=== PATIENT | male | born 1995 | race Caucasian/White ===

== ENCOUNTER → 2019-10-05 08:36 | Outpatient (CLI) | payer OTHER, SELFPAY ==
--- NOTE | 2019-10-05 | DI.RAD.S_ITS ---
PROCEDURE: XR THORACIC SPINE 3V INDICATIONS: BACK PAIN TECHNIQUE: 3 views of the thoracic spine were acquired. COMPARISON: None. FINDINGS: Bones: No fractures or dislocations. No suspicious bony lesions. 12 pairs of ribs are noted, and appear intact where visualized. Soft tissues: No paravertebral stripe thickening. IMPRESSION: No radiographic abnormalities. Dictated by: Massiel Markham M.D. on 10/05/2019 at 8:36 Approved by: Massiel Markham M.D. on 10/05/2019 at 8:37
--- NOTE | 2019-10-05 | DI.RAD.S_ITS ---
PROCEDURE: XR LUMBAR SPINE 2-3V INDICATIONS: BACK PAIN TECHNIQUE: 3 views of the lumbar spine were acquired. COMPARISON: None. FINDINGS: Bones: 5 [id number] vertebrae are present. There is normal bony alignment. No vertebral body compression fractures. No suspicious bony lesions. Soft tissues: Overlying bowel gas pattern is normal. No suspicious soft tissue calcifications. IMPRESSION: No radiographic abnormalities. Dictated by: Massiel Markham M.D. on 10/05/2019 at 8:39 Approved by: Massiel Markham M.D. on 10/05/2019 at 8:39
== END ==
PROVIDERS: PCP Family Medicine; Referring Provider Chiropractor; Visit Provider Family Medicine
DX: M54.9 Dorsalgia, unspecified (principal); M41.9 Scoliosis, unspecified
CPT/HCPCS: 72072; 72100

== ENCOUNTER 2022-02-03 16:35 | Emergency (ER) | payer OTHER, SELFPAY ==
[2022-02-03 16:40] VITALS: BP 141/90; PULSE 79; RESP 18; TEMP 37.1; O2SAT 100; BMI 19.9
--- NOTE | 2022-02-03 16:54 | ED_ITS ---
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 He notes that symptoms started on FridayJanuary 18. At that time he had noted some very mild low back pain he saw his chiropractor for an adjustment he also noted some left hip pain worsened he was laying on the left side. The chiropractor did an adjustment that included pulling on the left leg. Initially it did seem to help with the pain however within 24 hours he was having significant increased pain. He now is complaining of his entire left foot being numb significant pain in the left thigh/hamstring/calf that does seem to be migratory and positional. Over the last 3 days he is noticing decreasing sensation, increasing weakness and at this point is having trouble bearing weight on the left leg due to weakness. He has also noticed complete decreased sensation to the left foot. No recent fevers, specific trauma, no history of IV drug use. No urinary abnormalities or changes specifically no hesitancy, dysuria or incontinence. Describes no fecal incontinence Related Data Previous Rx's Medication Instructions Recorded epinephrine 0.3 mg/0.3 mL 0.3 mg (0.3 mL) IM ONCE #2 ea 02/23/21 injection, auto-injector (EpiPen 2-Eric) prednisone 20 mg tablet 40 mg PO DAILY PRN #10 tab 02/23/21 dexamethasone 4 mg tablet 10 mg PO DAILY #5 tab 02/03/22 (Decadron) oxycodone-acetaminophen 5 mg-325 1 tab PO Q6H PRN #14 tab 02/03/22 mg tablet Allergies Allergy/AdvReac Type Severity Reaction Status Date / Time bee venom protein (honey bee) Allergy Severe Anaphylaxis Verified 02/03/22 16:58 penicillin V [PENICILLIN V] AdvReac Intermediate VOMITS Verified 02/03/22 16:58 WITHOUT ANTINAUSEA MED Review of Systems Review of Systems Narrative: Remainder of complete review of systems is otherwise unremarkable except for that included in the HPI. 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 Family History (Updated 05/02/15 @ 00:00 by Conversion Provider) Father Age: 61 Hypertension Grandfather Age: 86 Diabetes mellitus Grandfather Cancer Grandmother Mental health problem Social History Smoking Status: Current some day smoker (Occasionaly cigar ) Smoking Status: Current some day smoker (Occasionaly cigar ) Exam Initial Vital Signs Initial Vital Signs: Vital Signs Temperature 98.7 F 02/03/22 16:40 Pulse Rate 79 02/03/22 16:40 Respiratory Rate 18 02/03/22 16:40 Blood Pressure 141/90 H 02/03/22 16:40 Pulse Oximetry 100 02/03/22 16:40 General: Healthy appearing, moderate distress having difficulty finding a comfortable position in bed. Intermittently sitting up and standing. Able to give a complete and coherent history. Well-nourished well-developed HEENT: Moist mucous membranes, normal sclera with reactive pupils, Respiratory: Lungs are clear to auscultation, no wheezing no rales no rhonchi. Full and symmetrical air movement Cardiac: Regular rate and rhythm no murmurs no bruits Abdomen: Soft, nontender, good bowel tones, no flank pain Skin: Warm and dry, no rashes Spine: No redness or warmth to the thoracic or lumbar spine. There is no point tenderness centrally. He does have some tenderness left paraspinous and into the left buttock with deep palpation. Neurologic: Full sensation to perineum. Decreased sensation in the posterior left leg lateral thigh lateral calf and dorsum of the foot and left lateral portion of the foot. Palpable dorsalis pedis and posterior tibialis pulses present. Pain with straight leg raising. Weakness unrelated to pain with walking or standing on the left leg with a sensation of leg is going to give out. Extremities: No trauma, well perfused Psych: Cooperative, appropriate insight and affect Course Orders Ordered: Discontinued Medications Dexamethasone (Dexamethasone 10 Mg/Ml Vial) 10 mg PO NOW ONE Stop: 02/03/22 18:36 Ketorolac Tromethamine (Ketorolac 30 Mg/Ml Vial) 30 mg IM NOW ONE Stop: 02/03/22 18:05 Last Admin: 02/03/22 18:12 Dose: 30 mg Documented by: INES Oxycodone/Acetaminophen (Oxycodone/Acetaminophen 5/325 Tablet) 1 tab PO NOW ONE Stop: 02/03/22 18:05 Last Admin: 02/03/22 18:12 Dose: 1 tab Documented by: INES Oxycodone/Acetaminophen (Oxycodone/Apap 5/325 Prepack) 1 bottle MISC SEEINSTR ONE Stop: 02/03/22 18:05 Last Admin: 02/03/22 18:12 Dose: 1 bottle Documented by: INES Vital Signs Vital signs: Vital Signs - 8 hr 02/03/22 16:40 02/03/22 18:08 Temperature 98.7 F Pulse Rate 79 74 Respiratory Rate 18 16 Blood Pressure 141/90 H 149/73 H Pulse Oximetry 100 97 Medical Decision Making MDM Narrative Medical decision making narrative: Otherwise healthy 26-year-old gentleman with history of some mild low back pain than chiropractic manipulation in our the last 2 weeks with progressive radicular findings and the last couple of days with increasing weakness and significant paresthesias on the left side. He does not have any red flags for epidural abscess however with the progressive weakness and paresthesia he does need an MRI. His paresthesia distribution is in an L5-S1 left side. He is given a take-home pack of Percocet to use this evening along with a Toradol shot here in the emergency department. Will start him on 3 days of Decadron with 1st dose given in the emergency department and prescription for additional 2 days. At this point with the progressive neurologic findings and need for MRI offered allowing him to stay in the emergency department for the evening knowing that there are no MRI options available at all until early tomorrow morning. He opted to stay with some friends and Anucort is some will be back it 6:00 a.m. in the morning with anticipation of MRI to follow. Care is reviewed with Dr. Mendes who will be here at 6:00 a.m. in the morning. Discharge Plan Departure Patient Disposition: Home Clinical Impression: Low back pain radiating to left leg, Left leg weakness, Paresthesia of left leg Instructions: DI for Back Pain With Sciatica Activity Restrictions/Additional Instructions: Thank you for coming in today With the pain that you are experiencing, using 400 mg of ibuprofen (2 [id number] pills) and 1 Tylenol every 6 hours can be very helpful. With severe pain using to ibuprofen and 1 Percocet may be needed. If you choose to use the Percocet make sure that your adding stool softener. In addition to your pain I am concerned with the weakness as well as the numbness that has been progressive over the last 3-4 days. With the progressive neurologic changes in the setting I have recommended an MRI of your lumbar spine. Unfortunately, options for MRI are not going to be available until at least 7:00 a.m. tomorrow morning. I will be discharging you from the emergency room this evening but would suggest that you return in the morning with anticipation of MRI to be ordered. I have reviewed your case with Dr. Mendes who is expected to be here in the morning. Prescriptions: New oxycodone-acetaminophen 5-325 mg tablet 1 tab PO Q6H PRN (Reason: pain) Qty: 14 0RF dexamethasone [Decadron] 4 mg tablet 10 mg PO DAILY Qty: 5 0RF No Action epinephrine [EpiPen 2-Eric] 0.3 mg/0.3 mL auto-injector 0.3 mg IM ONCE Qty: 2 2RF Rx Instructions: as a single dose; may repeat once prednisone 20 mg tablet 40 mg PO DAILY PRN (Reason: allergic reaction) Qty: 10 1RF Rx Instructions: Take 2 at the onset of an allergic reaction
[2022-02-03 18:08] VITALS: BP 149/73; PULSE 74; RESP 16; O2SAT 97
[2022-02-03] MEDS: KETOROLAC 30 MG/ML VIAL IM (18:12)
[2022-02-03] MEDS: OXYCODONE/ACETAMINOPHEN 5/325 TABLET 1 TAB PO (18:12)
[2022-02-03] MEDS: OXYCODONE/APAP 5/325 PREPACK 1 BOTTLE MISC (18:12)
[2022-02-03] MEDS: DEXAMETHASONE 10 MG/ML VIAL PO (18:47)
== END 2022-02-03 18:52 | disposition home or self-care (01) ==
PROVIDERS: Emergency Provider Emergency Medicine
DX: M54.42 Lumbago with sciatica, left side (principal); R20.2 Paresthesia of skin; R53.1 Weakness
CPT/HCPCS: 96372; 99283; J1100; J1885

== ENCOUNTER 2022-02-04 06:02 | Observation (INO) | payer OTHER, SELFPAY ==
[2022-02-04] VITALS (20 sets, daily range): BP systolic 89–143; BP diastolic 47–77; PULSE 66–115; RESP 8–20; TEMP 35.9–38.1; O2SAT 96–100; BMI 20.2
--- NOTE | 2022-02-04 | DI.RAD.S_ITS ---
PROCEDURE: XR LUMBAR SPINE 2-3V INDICATIONS: L5-S1 MICRO DISCECTOMY TECHNIQUE: Two nondiagnostic intraoperative fluoroscopic views of the lumbar spine were acquired. COMPARISON: [facility], [place], XR LUMBAR SPINE 2-3V, 10/05/2019, 8:48. FINDINGS/IMPRESSION: Two non-diagnostic intraoperative fluoroscopic views of the lower lumbar spine for L5-S1 micro endoscopic discectomy. Dictated by: Guy Kline M.D. on 02/05/2022 at 10:31 Approved by: Guy Kline M.D. on 02/05/2022 at 10:36
--- NOTE | 2022-02-04 06:15 | DI.MRI.S_ITS ---
PROCEDURE: MR LUMBAR SPINE WO/W CON INDICATIONS: LLE weak numb and tachycardic eval for HNP/Discitis/DDD TECHNIQUE: Noncontrast sagittal T1 spin echo and T2 fast spin echo, sagittal STIR, axial T1 and T2 fast spin echo through the lumbar spine. In cases with scoliosis, additional coronal T2 fast spin echo may be performed. After the administration of contrast, sagittal and axial T1 spin echo with fat saturation through the lumbar spine. COMPARISON: None. FINDINGS: Image quality: Excellent. Alignment and curvature: There is normal bony alignment. Marrow: Marrow is of normal overall signal. No acute vertebral body compression fractures. No suspicious marrow enhancement. Spinal cord: Conus medullaris terminates at the L1 level. Visualized spinal cord demonstrates normal signal, without suspicious enhancement. Paraspinous soft tissues: No paravertebral masses or abnormal enhancement. T12-L1: Normal appearance. L1-L2: Normal appearance. L2-L3: Normal appearance. L3-L4: Normal appearance. L4-L5: Mild loss of disc height and moderate disc desiccation. There is diffuse posterior disc bulge and posterior central annular fissure. The central canal is minimally narrowed. Mild bilateral foraminal stenosis. No definitive nerve root impingement. L5-S1: Mild loss of disc height moderate disc desiccation. There is diffuse posterior disc bulge and left posterior and lateral disc protrusion. The protruding disc measures 14 mm AP x 24 mm transverse x 16 mm cephalocaudal, obliterating the left lateral recess and extending into the neural foramen. There is left L5 nerve root impingement, and possible left S1 nerve root impingement. There is mass effect to the left anterior lateral aspect of the thecal sac. The central canal is mildly narrowed. There is severe left foraminal stenosis and mild right foraminal stenosis. IMPRESSION: 1. There is left posterior and lateral disc protrusion at L5-S1 with large protruding disc measuring 14 x 24 x 16 mm, obliterating the left lateral recess, impinging the left L5 nerve root, and possible the left S1 nerve root. There is severe left and mild right L5-S1 foraminal stenoses. 2. Degenerative disc disease at L4-L5 with posterior disc bulge and posterior central annular fissure posterior centrally. Minimal central canal stenosis. No foraminal stenosis. The result was discussed with Dr. Purcell. Dictated by: Birgit Cat M.D. on 02/04/2022 at 8:08 Approved by: Birgit Cat M.D. on 02/04/2022 at 8:28
--- NOTE | 2022-02-04 06:19 | ED.BACK ---
HPI - Back Pain/Injury <Duke Mendes DO - Last Filed: 02/06/22 07:01> General Chief Complaint: Back Pain/Injury Stated Complaint: recheck from prior visit told by doctor to come Time Seen by Provider: 02/04/22 06:04 Source: patient Mode of arrival: Ambulatory Limitations: no limitations History of Present Illness HPI Narrative: Patient is a 26-year-old male who returns to the emergency department this morning for an MRI. He was seen in the emergency department last evening. He recently had a chiropractic adjustment and since then has been having progressively worsening pain and numbness in his left lower extremity. Patient states that since last evening he does think that the numbness has progressed up his leg. He is still having discomfort. He denies any fevers or GI symptoms or urinary symptoms. Related Data Home Medications Medication Instructions Recorded Confirmed Tylenol 1,000 mg PO Q6H PRN 02/04/22 02/04/22 ibuprofen 400 mg tablet 400 mg Q6H PRN 02/04/22 02/04/22 Previous Rx's Medication Instructions Recorded epinephrine 0.3 mg/0.3 mL 0.3 mg (0.3 mL) IM ONCE #2 ea 02/23/21 injection, auto-injector (EpiPen 2-Eric) prednisone 20 mg tablet 40 mg PO DAILY PRN #10 tab 02/23/21 dexamethasone 4 mg tablet 10 mg PO DAILY #5 tab 02/03/22 (Decadron) oxycodone-acetaminophen 5 mg-325 1 tab PO Q6H PRN #14 tab 02/03/22 mg tablet oxycodone 5 mg tablet 5 mg PO Q4H PRN #30 tab 02/04/22 Allergies Allergy/AdvReac Type Severity Reaction Status Date / Time bee venom protein (honey bee) Allergy Severe Anaphylaxis Verified 02/04/22 06:09 penicillin V [PENICILLIN V] AdvReac Intermediate VOMITS Verified 02/04/22 06:09 WITHOUT ANTINAUSEA MED Review of Systems <Duke Mendes DO - Last Filed: 02/06/22 07:01> Constitutional Constitutional: Denies fever(s) Gastrointestinal Gastrointestinal: Reports as per HPI and Reports system reviewed and no additional complaints, except as documented Genitourinary Genitourinary: Reports system reviewed and no additional complaints, except as documented and Reports as per HPI Musculoskeletal Musculoskeletal: Reports system reviewed and no additional complaints, except as documented and Reports as per HPI Integumentary/Breasts Skin/Breast: Reports system reviewed and no additional complaints, except as documented and Reports as per HPI Neurologic Neurologic: Reports system reviewed and no additional complaints, except as documented and Reports as per HPI Hematologic/Lymphatic On Anticoagulants: No Patient History <DO Adrienne Shaffer Last Filed: 02/06/22 07:01> Medical History Bee sting allergy Cognitive and neurobehavioral dysfunction Family History (Updated 05/02/15 @ 00:00 by Conversion Provider) Father Age: 61 Hypertension Grandfather Age: 86 Diabetes mellitus Grandfather Cancer Grandmother Mental health problem Social History household members: significant other Smoking Status: Current some day smoker alcohol intake: current Smoking Status: Current some day smoker tobacco type: cigars alcohol intake frequency: a few times a week Substance Use Type: does not use Exam <DO Adrienne Shaffer Last Filed: 02/06/22 07:01> Initial Vital Signs Initial Vital Signs: Vital Signs Temperature 97.8 F 02/04/22 06:09 Pulse Rate 115 H 02/04/22 06:09 Respiratory Rate 20 02/04/22 06:09 Blood Pressure 143/75 H 02/04/22 06:09 Pulse Oximetry 97 02/04/22 06:09 HENMT Head: normal to inspection and normocephalic Resp Effort & Inspection: normal respiratory effort Cardio Rate: tachycardic Neuro Other: Patient is able to stand and walk. Describes decreased sensation to the lateral aspect of the leg along the lateral aspect of the left foot. Extrem General: normal to inspection Psych Appearance: grossly normal and well kempt <DO Adrienne Staples Last Filed: 02/04/22 18:44> Initial Vital Signs Initial Vital Signs: Vital Signs Temperature 97.8 F 02/04/22 06:09 Pulse Rate 115 H 02/04/22 06:09 Respiratory Rate 20 02/04/22 06:09 Blood Pressure 143/75 H 02/04/22 06:09 Pulse Oximetry 97 02/04/22 06:09 Course <DO Adrienne Shaffer Last Filed: 02/06/22 07:01> Orders Ordered: Discontinued Medications Hydrocodone Bitart/Acetaminophen (Hydrocodone/Acet 5/325 Tablet) 1 tab PO PACUNOW PRN PRN Reason: Mild or moderate pain Last Admin: 02/04/22 18:19 Dose: 1 tab Documented by: YON Cefazolin Sodium/Dextrose (Cefazolin 2 Gm/20 Ml Syringe) 2 gm IV NOW ONE Stop: 02/04/22 16:47 Last Admin: 02/04/22 16:25 Dose: 2 gm Documented by: NILAY Bupivacaine HCl 30 ml/ (Epinephrine HCl 0.15 mg) 0 ml INJ NOW ONE Stop: 02/04/22 16:49 Last Admin: 02/04/22 16:48 Dose: 30 ml Documented by: MAIDA Fentanyl (Fentanyl 100 Mcg/2 Ml Inj) 0 mcg IV Q5M PRN PRN Reason: Pain, Moderate (4-6) Hydromorphone HCl (Hydromorphone 1 Mg Inj) 1 mg IV NOW ONE Stop: 02/04/22 11:36 Last Admin: 02/04/22 11:39 Dose: 1 mg Documented by: LATHA Hydromorphone HCl (Hydromorphone 0.5 Mg Inj) 0.5 mg IV Q2H PRN PRN Reason: Pain, Severe (7-10) Hydromorphone HCl (Hydromorphone 1 Mg Inj) 0.5 mg IV Q2H PRN PRN Reason: Pain, Severe (7-10) Hydromorphone HCl (Hydromorphone 2 Mg Inj) 0.5 mg IV Q2H PRN PRN Reason: Pain, Severe (7-10) Last Admin: 02/04/22 14:41 Dose: 0.5 mg Documented by: Admin: 02/04/22 13:02 Dose: 0.5 mg Documented by: NIKUNJ Hydromorphone HCl (Hydromorphone 2 Mg Inj) 0 mg IV Q5M PRN PRN Reason: Pain, Severe (7-10) Hydroxyzine HCl (Hydroxyzine 50 Mg/Ml Inj) 25 mg IM NOW PRN PRN Reason: Pain, Mild (1-3) Sodium Chloride (Normal Saline 0.9%) 1,000 mls @ 125 mls/hr IV CONT BELA Lactated Ringer's (Lactated Ringers) 1,000 mls @ 84 mls/hr IV NOW ONE Stop: 02/05/22 00:31 Last Infusion: 02/04/22 18:14 Dose: 0 mls/hr Documented by: Admin: 02/04/22 12:37 Dose: 84 mls/hr Documented by: IVAN Lorazepam (Lorazepam 2 Mg/Ml Inj) 0.25 mg IV NOW PRN PRN Reason: Anxiety Meperidine HCl (Meperidine 50 Mg/Ml Inj) 25 mg IV Q2H PRN PRN Reason: Pain, Severe (7-10) Methylprednisolone (Methylprednisolone 40 Mg/Ml Vial) 40 mg IV NOW ONE Stop: 02/04/22 16:50 Last Admin: 02/04/22 16:49 Dose: 40 mg Documented by: MAIDA Metoclopramide HCl (Metoclopramide 10 Mg/2 Ml Inj) 10 mg IV NOW PRN PRN Reason: Nausea And Vomiting Ondansetron HCl (Ondansetron 4 Mg/2 Ml Inj) 4 mg IV Q4HR PRN PRN Reason: Nausea And Vomiting Ondansetron HCl (Ondansetron 4 Mg/2 Ml Inj) 4 mg IV NOW PRN PRN Reason: Nausea And Vomiting Vital Signs Vital signs: Vital Signs - 8 hr 02/04/22 06:09 Temperature 97.8 F Pulse Rate 115 H Respiratory Rate 20 Blood Pressure 143/75 H Pulse Oximetry 97 <González Purcell DO - Last Filed: 02/04/22 18:44> Orders Ordered: Discontinued Medications Hydrocodone Bitart/Acetaminophen (Hydrocodone/Acet 5/325 Tablet) 1 tab PO PACUNOW PRN PRN Reason: Mild or moderate pain Last Admin: 02/04/22 18:19 Dose: 1 tab Documented by: YON Cefazolin Sodium/Dextrose (Cefazolin 2 Gm/20 Ml Syringe) 2 gm IV NOW ONE Stop: 02/04/22 16:47 Last Admin: 02/04/22 16:25 Dose: 2 gm Documented by: NILAY Bupivacaine HCl 30 ml/ (Epinephrine HCl 0.15 mg) 0 ml INJ NOW ONE Stop: 02/04/22 16:49 Last Admin: 02/04/22 16:48 Dose: 30 ml Documented by: MAIDA Fentanyl (Fentanyl 100 Mcg/2 Ml Inj) 0 mcg IV Q5M PRN PRN Reason: Pain, Moderate (4-6) Hydromorphone HCl (Hydromorphone 1 Mg Inj) 1 mg IV NOW ONE Stop: 02/04/22 11:36 Last Admin: 02/04/22 11:39 Dose: 1 mg Documented by: LATHA Hydromorphone HCl (Hydromorphone 0.5 Mg Inj) 0.5 mg IV Q2H PRN PRN Reason: Pain, Severe (7-10) Hydromorphone HCl (Hydromorphone 1 Mg Inj) 0.5 mg IV Q2H PRN PRN Reason: Pain, Severe (7-10) Hydromorphone HCl (Hydromorphone 2 Mg Inj) 0.5 mg IV Q2H PRN PRN Reason: Pain, Severe (7-10) Last Admin: 02/04/22 14:41 Dose: 0.5 mg Documented by: Admin: 02/04/22 13:02 Dose: 0.5 mg Documented by: NIKUNJ Hydromorphone HCl (Hydromorphone 2 Mg Inj) 0 mg IV Q5M PRN PRN Reason: Pain, Severe (7-10) Hydroxyzine HCl (Hydroxyzine 50 Mg/Ml Inj) 25 mg IM NOW PRN PRN Reason: Pain, Mild (1-3) Sodium Chloride (Normal Saline 0.9%) 1,000 mls @ 125 mls/hr IV CONT BELA Lactated Ringer's (Lactated Ringers) 1,000 mls @ 84 mls/hr IV NOW ONE Stop: 02/05/22 00:31 Last Infusion: 02/04/22 18:14 Dose: 0 mls/hr Documented by: [email or web address] Admin: 02/04/22 12:37 Dose: 84 mls/hr Documented by: IVAN Lorazepam (Lorazepam 2 Mg/Ml Inj) 0.25 mg IV NOW PRN PRN Reason: Anxiety Meperidine HCl (Meperidine 50 Mg/Ml Inj) 25 mg IV Q2H PRN PRN Reason: Pain, Severe (7-10) Methylprednisolone (Methylprednisolone 40 Mg/Ml Vial) 40 mg IV NOW ONE Stop: 02/04/22 16:50 Last Admin: 02/04/22 16:49 Dose: 40 mg Documented by: MAIDA Metoclopramide HCl (Metoclopramide 10 Mg/2 Ml Inj) 10 mg IV NOW PRN PRN Reason: Nausea And Vomiting Ondansetron HCl (Ondansetron 4 Mg/2 Ml Inj) 4 mg IV Q4HR PRN PRN Reason: Nausea And Vomiting Ondansetron HCl (Ondansetron 4 Mg/2 Ml Inj) 4 mg IV NOW PRN PRN Reason: Nausea And Vomiting Consultations Consultation #1: Patient's clinical course and imaging findings discussed with Dr. Mercado, on-call orthopedist. After discussion he requested we keep the patient NPO and he will take to the OR later this afternoon Vital Signs Vital signs: Vital Signs - 8 hr 02/04/22 06:09 Temperature 97.8 F Pulse Rate 115 H Respiratory Rate 20 Blood Pressure 143/75 H Pulse Oximetry 97 MDM - Back Pain/Injury <Duke Mendes, - Last Filed: 02/06/22 07:01> Lab Data Result diagrams: 02/04/22 06:15 02/04/22 06:15 Labs: Lab Results 02/04/22 02/04/22 02/04/22 Range/Units 06:15 06:15 10:10 WBC 9.7 (4.5-11.0) X10^3/uL RBC 5.57 (4.5-5.9) X10^6/uL Hgb 16.4 (13.5-17.5) g/dL Hct 47.8 (41-53) % MCV 85.8 (80-100) fL MCH 29.4 (26-34) PG MCHC 34.3 (30-36) % RDW 13.1 (11.6-14.8) % Plt Count 198 (150-400) X10^3/uL Neut % (Auto) 84.2 H (50-75) % Lymph % (Auto) 12.5 L (25-40) % [place] % (Auto) 2.8 L (3-14) % Eos % (Auto) 0.0 L (2-4) % Baso % (Auto) 0.5 (0-2) % Neut # (Auto) 8200 H (6997-6685) /uL Lymph # (Auto) 1200 (7408-1812) /uL [place] # (Auto) 300 (0-900) /uL Eos # (Auto) 0 (0-450) /uL Baso # (Auto) 100 (0-100) /uL Sodium 139 (137-145) mmol/L Potassium 4.2 (3.4-5.1) mmol/L Chloride 104 (98-107) mmol/L Carbon Dioxide 25 (22-32) mmol/L BUN 16 (9-20) mg/dL Creatinine 0.72 (0.66-1.25) mg/dL Estimated GFR > 60 (>60) mL/min BUN/Creatinine Ratio 22.2 H (6-22) Glucose 138 H (70-100) mg/dL Calcium 9.5 (8.4-10.2) mg/dL SARS-CoV-2 (PCR) Negative (Negative) MDM Narrative Medical decision making narrative: Patient does report some worsening of symptoms specifically the numbness of his left leg compared last evening. He still does not have any specific findings concerning for hematoma or abscess or cauda equina however given his recent chiropractic visit and his tachycardia in his symptoms there was concern about compression fracture, disc herniation, stenosis or diskitis. MRI with without contrast ordered. Care turned over to Dr. Purcell to follow-up on MRI and disposition. <González Purcell, DO - Last Filed: 02/04/22 18:44> Lab Data Labs: Lab Results 02/04/22 02/04/22 02/04/22 Range/Units 06:15 06:15 10:10 WBC 9.7 (4.5-11.0) X10^3/uL RBC 5.57 (4.5-5.9) X10^6/uL Hgb 16.4 (13.5-17.5) g/dL Hct 47.8 (41-53) % MCV 85.8 (80-100) fL MCH 29.4 (26-34) PG MCHC 34.3 (30-36) % RDW 13.1 (11.6-14.8) % Plt Count 198 (150-400) X10^3/uL Neut % (Auto) 84.2 H (50-75) % Lymph % (Auto) 12.5 L (25-40) % [place] % (Auto) 2.8 L (3-14) % Eos % (Auto) 0.0 L (2-4) % Baso % (Auto) 0.5 (0-2) % Neut # (Auto) 8200 H (4933-5961) /uL Lymph # (Auto) 1200 (3892-4611) /uL [place] # (Auto) 300 (0-900) /uL Eos # (Auto) 0 (0-450) /uL Baso # (Auto) 100 (0-100) /uL Sodium 139 (137-145) mmol/L Potassium 4.2 (3.4-5.1) mmol/L Chloride 104 (98-107) mmol/L Carbon Dioxide 25 (22-32) mmol/L BUN 16 (9-20) mg/dL Creatinine 0.72 (0.66-1.25) mg/dL Estimated GFR > 60 (>60) mL/min BUN/Creatinine Ratio 22.2 H (6-22) Glucose 138 H (70-100) mg/dL Calcium 9.5 (8.4-10.2) mg/dL SARS-CoV-2 (PCR) Negative (Negative) Imaging Data Lumbar MRI: Radiologist's Impression: Launch?[place] [address] Magnetic Resonance Report Signed Patient: Michael Rothman MR#: [id number] : 1995 Acct:[id number] Age/Sex: 26 / M Date of Service: 02/04/22 Loc: Accession Number: [id number] ?? Procedure: MR lumbar spine wo/w con Ordering Provider: Duke Mendes D.O. PROCEDURE:? MR LUMBAR SPINE WO/W CON ? INDICATIONS:? LLE weak ? numb and tachycardic eval for HNP/Discitis/DDD ? TECHNIQUE:? Noncontrast sagittal T1 spin echo and T2 fast spin echo, sagittal STIR, axial T1 and T2 fast spin echo through the lumbar spine.? In cases with scoliosis, additional coronal T2 fast spin echo may be performed.? After the administration of contrast, sagittal and axial T1 spin echo with fat saturation through the lumbar spine.? ? COMPARISON:? None. ? FINDINGS:? Image quality:? Excellent.? ? Alignment and curvature:? There is normal bony alignment.? ? Marrow:? Marrow is of normal overall signal.? No acute vertebral body compression fractures.? No suspicious marrow enhancement.? ? Spinal cord:? Conus medullaris terminates at the L1 level.? Visualized spinal cord demonstrates normal signal, without suspicious enhancement.? ? Paraspinous soft tissues:? No paravertebral masses or abnormal enhancement.? ? T12-L1:? Normal appearance.? ? L1-L2:? Normal appearance.? ? L2-L3:? Normal appearance.? ? L3-L4:? Normal appearance.? ? L4-L5:? Mild loss of disc height and moderate disc desiccation.? There is diffuse posterior disc bulge and posterior central annular fissure.? The central canal is minimally narrowed.? Mild bilateral foraminal stenosis. No definitive nerve root impingement. ? L5-S1:? Mild loss of disc height moderate disc desiccation.? There is diffuse posterior disc bulge and left posterior and lateral disc protrusion.? The protruding disc measures 14 mm AP x 24 mm transverse x 16 mm cephalocaudal, obliterating the left lateral recess and extending into the neural foramen.? There is left L5 nerve root impingement, and possible left S1 nerve root impingement.? There is mass effect to the left anterior lateral aspect of the thecal sac.? The central canal is mildly narrowed.? There is severe left foraminal stenosis and mild right foraminal stenosis. ? IMPRESSION:? ? 1. There is left posterior and lateral disc protrusion at L5-S1 with large protruding disc measuring 14 x 24 x 16 mm, obliterating the left lateral recess, impinging the left L5 nerve root, and possible the left S1 nerve root.? There is severe left and mild right L5-S1 foraminal stenoses. ? 2. Degenerative disc disease at L4-L5 with posterior disc bulge and posterior central annular fissure posterior centrally.? Minimal central canal stenosis.? No foraminal stenosis.? ? ? The result was discussed with Dr. Purcell. ? Dictated by: Birgit Cat M.D. on 02/04/2022 at 8:08 ? ? Approved by: Birgit Cat M.D. on 02/04/2022 at 8:28 ? Discharge Plan Departure Patient Disposition: Admitted to Surgery Clinical Impression: Acute left lumbar radiculopathy Admit Date/Time: 02/04/22 11:37 Admit Provider: Karin Mercado
[2022-02-04 06:32] LABS: Add Manual Diff / Slide Review NO; Basophils Absolute Auto 100 /uL (0-100); Basophils Percent Auto 0.5 % (0-2); Eosinophils Absolute Auto 0 /uL (0-450); Hematocrit 47.8 % (41-53); Hemoglobin 16.4 g/dL (13.5-17.5); Lymphocytes Absolute Auto 1200 /uL (1100-4500); Lymphocytes Percent Auto 12.5 % (25-40); Mean Corpuscular HGB Conc 34.3 % (30-36); Mean Corpuscular Hemoglobin 29.4 PG (26-34); Mean Corpuscular Volume 85.8 fL (80-100); Monocytes Absolute Auto 300 /uL (0-900); Monocytes Percent Auto 2.8 % (3-14); Neutrophils Absolute Auto 8200 /uL (1500-7000); Neutrophils Percent Auto 84.2 % (50-75); Platelet Count 198 X10^3/uL (150-400); Red Blood Cell Count 5.57 X10^6/uL (4.5-5.9); Red Cell Distribution Width 13.1 % (11.6-14.8); White Blood Cell Count 9.7 X10^3/uL (4.5-11.0)
[2022-02-04 06:38] LABS: BUN Creatinine Ratio 22.2 (6-22); Blood Urea Nitrogen 16 mg/dL (9-20); Calcium 9.5 mg/dL (8.4-10.2); Carbon Dioxide 25 mmol/L (22-32); Chloride 104 mmol/L (98-107); Estimated Glomerular Filt Rate > 60 mL/min (>60); Glucose 138 mg/dL (70-100); HEMOLYSIS 16 (0-50); Potassium 4.2 mmol/L (3.4-5.1); Sodium 139 mmol/L (137-145)
[2022-02-04 11:18] LABS: COVID19 -Nasal RAPID Negative (Negative)
[2022-02-04] MEDS: HYDROMORPHONE 1 MG INJ IV (11:39)
[2022-02-04] MEDS: LACTATED RINGERS 1,000 ML 84 ML IV (12:37)
--- NOTE | 2022-02-04 12:38 | SUR.HOLD ---
Addendum entered by Lashay Thakur R.N. 02/04/22 12:49: [id number] RN, Elizabeth, updated on process, Awaiting to re check pain meds or call for more if ok with surgeon/anesthesia.admission completed. Original Note: 02/04/22 -patient admitted in to preop holding for procedure later today .med prior to arrival in ER- pain between 6-8 , repositions self prn for comfort. awaiting to see MD. Grandfather arrived in hospital-updated and left. Father on way from [facility] to be here for son. given call light. awaiting anesthesia and surgeon to come see patient.
--- NOTE | 2022-02-04 12:48 | SUR.HOLD ---
Spoke with Dr Mercado in OR #3 via Stephan CHUNG. Ok to start Dilaudid Q@H at this time. Pt received dose in ED.
[2022-02-04] MEDS: HYDROMORPHONE 2 MG INJ 0.5 MG IV ×2 (13:02→14:41)
--- NOTE | 2022-02-04 16:15 | PM.HP.1 ---
History of Present Illness History of Present Illness Date Patient Seen: 02/04/22 Time Patient Seen: 16:16 Date of Onset of Symptoms: 01/11/22 Chief complaint: recheck from prior visit told by doctor to come Narrative: Mr. Rothman is a 26 yo M with 1 month hx of severe back pain and left leg radiculopathy He has been having progressive numbness to his left leg with weakness and associated pain. He had chiropractor treatment which worsened his pain. His MRI shows large L5-S1 disc extrusion with left S1 nerve impingement. He has severe uncontrollable pain with now constant numbness to his left foot due to the large disc herniation. He failed over 3 weeks of conservative care including oral steroids, chiropractor treatment with persisting pain. Patient History Medical History Bee sting allergy Cognitive and neurobehavioral dysfunction Family & Social History Family History (Updated 05/02/15 @ 00:00 by Conversion Provider) Father Age: 61 Hypertension Grandfather Age: 86 Diabetes mellitus Grandfather Cancer Grandmother Mental health problem Social History: household members significant other Prior Living Arrangements House Safety & Behavioral: Feels Safe in Current Yes Environment Tobacco & Substance use: Tobacco type pipe,cigars Smoking Status Current some day smoker alcohol intake current alcohol intake frequency a few times a week Substance Use Type does not use Meds Home Medications and Allergies Home Medications Medication Instructions Recorded Confirmed Type epinephrine 0.3 mg/0.3 mL 0.3 mg (0.3 mL) IM ONCE #2 ea 02/23/21 02/04/22 Rx injection, auto-injector (EpiPen 2-Eric) prednisone 20 mg tablet 40 mg PO DAILY PRN #10 tab 02/23/21 02/04/22 Rx dexamethasone 4 mg tablet 10 mg PO DAILY #5 tab 02/03/22 02/04/22 Rx (Decadron) oxycodone-acetaminophen 5 mg-325 1 tab PO Q6H PRN #14 tab 02/03/22 02/04/22 Rx mg tablet Tylenol 1,000 mg PO Q6H PRN 02/04/22 02/04/22 History ibuprofen 400 mg tablet 400 mg Q6H PRN 02/04/22 02/04/22 History oxycodone 5 mg tablet 5 mg PO Q4H PRN #30 tab 02/04/22 Rx Allergies Allergy/AdvReac Type Severity Reaction Status Date / Time bee venom protein (honey bee) Allergy Severe Anaphylaxis Verified 02/04/22 06:09 penicillin V [PENICILLIN V] AdvReac Intermediate VOMITS Verified 02/04/22 06:09 WITHOUT ANTINAUSEA MED Exam Vital Signs (past 8 hours): - 02/04/22 09:59 02/04/22 12:01 02/04/22 12:05 Temperature 100.6 F H 99.5 F Pulse Rate 66 85 Respiratory Rate 16 Blood Pressure 124/71 138/77 Pulse Oximetry 98 100 02/04/22 13:01 02/04/22 13:10 02/04/22 14:46 Temperature Pulse Rate 103 H 106 H 101 H Respiratory Rate 20 20 16 Blood Pressure Pulse Oximetry 98 96 98 Oxygen Delivery Method Room Air Neuro Other: LLE with + straight leg raise, decreased sensibility to L S1 dermatome, motor strength 4-/5 in left gastroc. Objective Labs Result Diagrams: 02/04/22 06:15 02/04/22 06:15 Labs: Laboratory Results - last 24 hr 02/04/22 02/04/22 02/04/22 06:15 06:15 10:10 WBC 9.7 RBC 5.57 Hgb 16.4 Hct 47.8 MCV 85.8 MCH 29.4 MCHC 34.3 RDW 13.1 Plt Count 198 Neut % (Auto) 84.2 H Lymph % (Auto) 12.5 L [place] % (Auto) 2.8 L Eos % (Auto) 0.0 L Baso % (Auto) 0.5 Neut # (Auto) 8200 H Lymph # (Auto) 1200 [place] # (Auto) 300 Eos # (Auto) 0 Baso # (Auto) 100 Sodium 139 Potassium 4.2 Chloride 104 Carbon Dioxide 25 BUN 16 Creatinine 0.72 Estimated GFR > 60 BUN/Creatinine Ratio 22.2 H Glucose 138 H Calcium 9.5 SARS-CoV-2 (PCR) Negative Assessment & Plan Assessment & Plan narrative: Patient will benefit from surgical treatment via left L5-S1 microdiscectomy. Risks for surgery include but not limited to bleeding, infection, nerve/dura injury, persisting pain/numbness, need for additional procedure. Patient understands and would like to proceed with surgery. I scheduled him for L5-S1 left microdiscectomy emergently. Time Spent With Patient Critical Care time: I spent a total of [] minutes of critical care time on this patient's care today; this time is exclusive of procedural time.
[2022-02-04] MEDS: CEFAZOLIN 2 GM/20 ML SYRINGE IV (16:25)
--- NOTE | 2022-02-04 16:40 | SUR.OPER ---
Prone on spine table, head in foam head support, padded chest and pelvic supports, gel pad at knees, lower legs supported by pillows; nipples, genitalia and toes free of pressure, arms secured on foam padded arm boards at <90 degrees abduction. Tape over blanket at thigh secured to table.
[2022-02-04] MEDS: BUPIVACAINE 0.25% (PF) 30 ML, EPINEPHrine 0.15 MG INJ (16:48)
--- NOTE | 2022-02-04 17:28 | P.OP_ITS ---
Operative Date/Time/Diagnoses Date of procedure: 02/04/22 Time of procedure: 16:15 Pre-op diagnosis: 1. L5-S1 disc herniation 2. L5-S1 spinal stenosis Post-op diagnosis: same Procedure & Clinicians Procedure: 1. L5-S1 left microdiscectomy 2. Utilization of microsurgical technique and operating microscope Same procedure as scheduled: Yes Indications: Mr. Rotmhan is a 26 yo M with 1 month hx of severe left leg pain, weakness and progressive numbness. He failed conservative care with worsening pain over the weekend. He came into the ER this morning. Emergency MRI showed large L5-S1 extruded disc material with left S1 nerve root compression. After discussing risks and benefits of surgery treatment, patient was scheduled for emergent left L5-S1 microdiscectomy. Surgeon: Karin Mercado Voice Intercept Technician: Coni John Click Yes if Unassisted: No Anesthesia Type: General Operative Notes Closure Type: primary Specimen(s): none sent Estimated Blood Loss (mL): 5 Blood products transfused: none Procedure in detail: Patient was seen in the preoperative area. Risks and benefits of the surgery was discussed with the patient. Informed consent was obtained from the patient and placed in the chart. Surgical site was marked. Patient was taken to the operative room. General anesthesia was administered. Prophylactic antibiotic was given to the patient less than 30 min before the incision was made. Patient was placed into a prone position on the Juve table. Patient's back was then prepped and draped in the sterile fashion. Time-out was performed at this time. Using AP and lateral C-arm imaging the interval between L5-S1 was identified and marked on patient's back. A 1 inch incision 1 in from midline was made on the left side. The fascia was incised in line with skin incision. Globus MARS retractors was placed inside the incision and docked onto the L5 lamina. Using microsurgical technique and operating microscope, a L5 laminotomy was performed using a Kerrison rongeur. Liagamentum flavum was resected at the site of the laminotomy. The disc space at L5-S1 was identified. Microdiscectomy was performed by incising the annulus with #11 blade. Microcurettes and pituitary was used to removed herniated disc fragments of disc from the epidural space. Patient was found have multiple fragments of extruded disc causing severe left S1 nerve root compression. After the microdiskectomy was completed there is no visible compression on her nerve root. Patient was also found to have significant epidural lipomatosis which was also causing additional stenosis in the epidural space. The lipomas were carefully resected from the epidural space to further decompress the epidural space. After the microdiskectomy was completed, the area medial lateral superior and inferior to the area of the microdiskectomy was inspected and explored using a micro curette. No other impinging structure was identified. The wound was then irrigated with sterile normal saline. 40 mg Depo-Medrol was placed into the epidural space. The deep fascia was closed with 1-0 Vicryl. The subcutaneous tissue was closed with 2-0 Vicryl. The skin was closed with 4-0 Monocryl. Patient tolerated the procedure well. There were no complications. Patient was transferred recovery room in stable condition. Complications: none Post-operative Condition: stable Disposition: PACU Plan for aftercare: Discharge to home
[2022-02-04] MEDS: HYDROCODONE/ACET 5/325 TABLET 1 TAB PO (18:19)
== END 2022-02-04 16:47 | disposition home or self-care (01) ==
LOC: ED 10:44 → AC 11:39
PROVIDERS: Emergency Medicine; Admitting Provider Orthopaedic Surgery Orthopaedic Surgery of the Spine; Emergency Provider Emergency Medicine; Visit Provider Orthopaedic Surgery Orthopaedic Surgery of the Spine
PROC: (CPT 63030; principal; 2022-02-04 15:15)
DX: M51.26 Other intervertebral disc displacement, lumbar region (principal); M48.061 Spinal stenosis, lumbar region without neurogenic claudication; M54.16 Radiculopathy, lumbar region
CPT/HCPCS: 63030; 36415; 72100; 72158; 76000; 80048; 85025; 87635; 96374; 96376; 99284; C9803; G0378; J0171; J0690; J1100; J1170; J1885; J2250; J2405; J2704; J2920; J3010

== ENCOUNTER 2022-04-21 10:50 | Emergency (ER) | payer OTHER, SELFPAY ==
[2022-04-21] VITALS (13 sets, daily range): BP systolic 110–144; BP diastolic 56–79; PULSE 69–95; RESP 16; TEMP 37; O2SAT 97–100; BMI 20.7
[2022-04-21] MEDS: KETOROLAC 30 MG/ML VIAL IV (11:24)
--- NOTE | 2022-04-21 12:29 | DI.CT.S_ITS ---
PROCEDURE: CT LUMBAR SPINE WO CON INDICATIONS: low back pain, hx lami TECHNIQUE: Noncontrast 3 mm thick sections acquired from the T12 level to the sacrum. Sagittal and coronal reformats were constructed. For radiation dose reduction, the following was used: automated exposure control. COMPARISON: [facility], MR, MR LUMBAR SPINE WO/W CON, 02/04/2022, 7:21. FINDINGS: Image quality: Excellent. Bones: There is normal bony alignment. No acute vertebral body compression fractures. No suspicious lytic or blastic bony lesions. No pars defects. T12-L1: No significant disc bulge. The foramina and central canal are patent. L1-L2: No significant disc bulge. The foramina and central canal are patent. L2-L3: No significant disc bulge. The foramina and central canal are patent. L3-L4: No significant disc bulge. The foramina and central canal are patent. L4-L5: Diffuse disc bulge and disc osteophyte complexes causes mild bilateral foraminal stenosis. Mild central canal stenosis. L5-S1: In the area of previous disc protrusion in the left lateral recess/left foramina there is high density which causes severe central canal stenosis causing mass effect upon the central canal and severe left foraminal stenosis. Soft tissues: No retroperitoneal masses or hematomas. Visualized aorta is normal in caliber. IMPRESSION: High density in the left lateral recess/left foramina causing severe central canal stenosis and left foraminal stenosis. Differential diagnosis includes residual disc and/or hemorrhage. Recommend MRI with contrast. Dictated by: Ej Galaviz M.D. on 04/21/2022 at 12:20 Approved by: Ej Galaviz M.D. on 04/21/2022 at 12:57
--- NOTE | 2022-04-21 12:33 | ED_ITS ---
HPI - Back Pain/Injury <Duke ZafarMERVIN strauss - Last Filed: 04/21/22 16:42> General Chief Complaint: Back Pain/Injury Stated Complaint: Lower back pain Time Seen by Provider: 04/21/22 11:20 Source: patient and EMS History of Present Illness HPI Narrative: 27-year-old male, current some day smoker, with history L1 laminectomy earlier this year, presents to emergency department with complaints lower back pain, left-sided sciatica and decreased sensation to the left leg. Patient reports that he was walking alongside his father's tractor and slipped in the mud, that caused his left leg to stretch out in front of him but did not result in a fall to the ground. Patient reports that he felt a pop and pain down his leg that he had not felt since before the surgery. Patient was medevac off of a nearby [place]. Surgery was by Dr. Cat at [facility]. Related Data Home Medications Medication Instructions Recorded Confirmed Tylenol 1,000 mg PO Q6H PRN Breakthrough 02/04/22 02/04/22 Pain, Moderate ibuprofen 400 mg tablet 400 mg Q6H PRN Pain (Scale Score 02/04/22 02/04/22 7-10) Previous Rx's Medication Instructions Recorded epinephrine 0.3 mg/0.3 mL 0.3 mg (0.3 mL) IM ONCE #2 ea 02/23/21 injection, auto-injector (EpiPen 2-Eric) prednisone 20 mg tablet 40 mg PO DAILY PRN allergic 02/23/21 reaction #10 tabs dexamethasone 4 mg tablet 10 mg PO DAILY #5 tabs 02/03/22 (Decadron) oxycodone-acetaminophen 5 mg-325 1 tab PO Q6H PRN pain #14 tabs 02/03/22 mg tablet oxycodone 5 mg tablet 5 mg PO Q4H PRN pain #30 tabs 02/04/22 diazepam 5 mg tablet (Valium) 5 mg PO BID PRN muscle spasm #10 04/21/22 tabs methylprednisolone 4 mg tablets in 4 mg PO DAILY pain #21 ea 04/21/22 a dose pack (Medrol (Eric)) oxycodone-acetaminophen 5 mg-325 1 tab PO Q4-6H PRN pain #30 tabs 04/21/22 mg tablet (Percocet) Allergies Allergy/AdvReac Type Severity Reaction Status Date / Time bee venom protein (honey bee) Allergy Severe Anaphylaxis Verified 04/21/22 11:07 penicillin V [PENICILLIN V] AdvReac Intermediate VOMITS Verified 04/21/22 11:07 WITHOUT ANTINAUSEA MED Review of Systems <MERVIN Browning - Last Filed: 04/21/22 16:42> Review of Systems Narrative: Narrative: GENERAL: Denies chills, fatigue, fever, sweats. See HPI HEENT: Denies sinus pain, ear pain, sore throat, difficulty swallowing, dizziness. RESPIRATORY: Denies dyspnea, cough, wheezing, sputum. CARDIOVASCULAR: Denies chest pain, palpitations, edema. GASTROINTESTINAL: Denies nausea, vomiting, abdominal pain, diarrhea, constipation. : Denies dysuria, frequency, incontinence, hematuria, urinary retention, flank pain, loss of control of bowel or bladder. MUSCULOSKELETAL: Denies weakness, joint pain, or bony pain. SKIN: Denies rash, skin lesions, or pruritis. NEUROLOGIC: Denies dizziness, headache, confusion. PSYCHIATRIC: No concerning psychosocial issues. 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 Normocephalic. EYES: Pupils equal round and reactive. Extraocular motions intact. No scleral icterus, injection or drainage. ENT: Nose without bleeding, purulent drainage. Throat without erythema, tonsillar hypertrophy or exudate. Airway patent. NECK: Trachea midline. No JVD or lymphadenopathy. Nontender. CARDIOVASCULAR: Regular rate and rhythm without murmurs, peripheral pulses intact, cap refill <2 sec. RESPIRATORY: Breath sounds equal and clear bilaterally. No wheezes, rales, or rhonchi. No cough. No increased respiratory effort. No accessory muscle use. GASTROINTESTINAL: Abdomen soft, non-tender, nondistended without guarding or rebound. No suprapubic pain. EXTREMITIES: Normal range of motion, no clubbing or edema. Neurovascularly intact with the exception of mild numbness to left leg. NEURO: A&O x 3. SKIN: Warm, dry, no rashes or lesions noted. Initial Vital Signs Initial Vital Signs: Vital Signs Pulse Rate 80 04/21/22 10:56 Blood Pressure 141/79 H 04/21/22 10:56 Pulse Oximetry 99 04/21/22 10:56 Reviewed Back/Spine/Pelvis Other: BACK steam box tender but free of any obvious external abnormalities. There is no asymmetry, swelling, bruising or wound. There is no paraspinal tenderness or CVA tenderness. SI joints nontender. No pain over spinous processes. No symptoms of cauda equina such as saddle anesthesia. Sensation is diminished on left leg ROM is limited due to pain. SLE is positive on the left Resistive strengths are within normal limits <Meghan Chery DO - Last Filed: 04/22/22 11:50> Initial Vital Signs Initial Vital Signs: Vital Signs Pulse Rate 80 04/21/22 10:56 Blood Pressure 141/79 H 04/21/22 10:56 Pulse Oximetry 99 04/21/22 10:56 Course <MERVIN Browning - Last Filed: 04/21/22 16:42> Orders Ordered: Discontinued Medications Dexamethasone (Dexamethasone 4 Mg/Ml Vial) 4 mg IV NOW ONE Stop: 04/21/22 15:53 Last Admin: 04/21/22 16:07 Dose: 4 mg Documented By: JACLYN Diazepam (Diazepam 5 Mg Tablet) 5 mg PO NOW ONE Stop: 04/21/22 12:33 Last Admin: 04/21/22 12:56 Dose: 5 mg Documented By: JACLYN Ketorolac Tromethamine (Ketorolac 30 Mg/Ml Vial) 30 mg IV NOW ONE Stop: 04/21/22 11:21 Last Admin: 04/21/22 11:24 Dose: 30 mg Documented By: JACLYN Oxycodone/Acetaminophen (Oxycodone/Acetaminophen 5/325 Tablet) 1 tab PO NOW ONE Stop: 04/21/22 12:33 Last Admin: 04/21/22 12:56 Dose: 1 tab Documented By: JACLYN Consultations Consultation #1: Hannah Gibbs. Recommended administration of 4 mg of Decadron. Prescription for Medrol Dosepak, Percocet and Valium to keep him comfortable until they can see him next week. Dr. Aguila while place a high-level task in his chart to get him seen as soon as possible. Vital Signs Vital signs: Vital Signs - 8 hr 04/21/22 11:00 04/21/22 10:56 04/21/22 10:56 Temperature 98.6 F Pulse Rate 83 80 Respiratory Rate 16 Blood Pressure 141/79 H 141/79 H Pulse Oximetry 99 99 Oxygen Delivery Method Room Air 04/21/22 11:00 04/21/22 11:00 04/21/22 11:30 Temperature Pulse Rate 82 Respiratory Rate Blood Pressure 144/65 H 126/63 Pulse Oximetry 98 Oxygen Delivery Method 04/21/22 11:30 04/21/22 12:00 04/21/22 12:00 Temperature Pulse Rate 78 69 Respiratory Rate Blood Pressure 121/56 L Pulse Oximetry 99 98 Oxygen Delivery Method 04/21/22 12:30 04/21/22 12:30 04/21/22 13:00 Temperature Pulse Rate 80 81 Respiratory Rate Blood Pressure 127/64 Pulse Oximetry 100 100 Oxygen Delivery Method 04/21/22 13:22 04/21/22 13:22 04/21/22 13:30 Temperature Pulse Rate 79 Respiratory Rate Blood Pressure 123/64 110/60 Pulse Oximetry 100 Oxygen Delivery Method 04/21/22 13:30 04/21/22 14:00 04/21/22 14:00 Temperature Pulse Rate 77 76 Respiratory Rate Blood Pressure 119/69 Pulse Oximetry 100 99 Oxygen Delivery Method 04/21/22 15:02 04/21/22 15:30 Temperature Pulse Rate 95 H 75 Respiratory Rate Blood Pressure Pulse Oximetry 97 100 Oxygen Delivery Method <Meghan Chery, - Last Filed: 04/22/22 11:50> Orders Ordered: Discontinued Medications Dexamethasone (Dexamethasone 4 Mg/Ml Vial) 4 mg IV NOW ONE Stop: 04/21/22 15:53 Last Admin: 04/21/22 16:07 Dose: 4 mg Documented By: JACLYN Diazepam (Diazepam 5 Mg Tablet) 5 mg PO NOW ONE Stop: 04/21/22 12:33 Last Admin: 04/21/22 12:56 Dose: 5 mg Documented By: JACLYN Ketorolac Tromethamine (Ketorolac 30 Mg/Ml Vial) 30 mg IV NOW ONE Stop: 04/21/22 11:21 Last Admin: 04/21/22 11:24 Dose: 30 mg Documented By: JACLYN Oxycodone/Acetaminophen (Oxycodone/Acetaminophen 5/325 Tablet) 1 tab PO NOW ONE Stop: 04/21/22 12:33 Last Admin: 04/21/22 12:56 Dose: 1 tab Documented By: JACLYN Vital Signs Vital signs: Vital Signs - 8 hr 04/21/22 11:00 04/21/22 10:56 04/21/22 10:56 Temperature 98.6 F Pulse Rate 83 80 Respiratory Rate 16 Blood Pressure 141/79 H 141/79 H Pulse Oximetry 99 99 Oxygen Delivery Method Room Air 04/21/22 11:00 04/21/22 11:00 04/21/22 11:30 Temperature Pulse Rate 82 Respiratory Rate Blood Pressure 144/65 H 126/63 Pulse Oximetry 98 Oxygen Delivery Method 04/21/22 11:30 04/21/22 12:00 04/21/22 12:00 Temperature Pulse Rate 78 69 Respiratory Rate Blood Pressure 121/56 L Pulse Oximetry 99 98 Oxygen Delivery Method 04/21/22 12:30 04/21/22 12:30 04/21/22 13:00 Temperature Pulse Rate 80 81 Respiratory Rate Blood Pressure 127/64 Pulse Oximetry 100 100 Oxygen Delivery Method 04/21/22 13:22 04/21/22 13:22 04/21/22 13:30 Temperature Pulse Rate 79 Respiratory Rate Blood Pressure 123/64 110/60 Pulse Oximetry 100 Oxygen Delivery Method 04/21/22 13:30 04/21/22 14:00 04/21/22 14:00 Temperature Pulse Rate 77 76 Respiratory Rate Blood Pressure 119/69 Pulse Oximetry 100 99 Oxygen Delivery Method 04/21/22 15:02 04/21/22 15:30 Temperature Pulse Rate 95 H 75 Respiratory Rate Blood Pressure Pulse Oximetry 97 100 Oxygen Delivery Method MDM - Back Pain/Injury <MERVIN Browning - Last Filed: 04/21/22 16:42> Differential Diagnosis Differential diagnosis: Likely lumbar radiculopathy and sciatica Imaging Data CT - Lumbar spine: Radiologist's Impression: [address] [address] [address] Scan Report Signed Patient: Michael Rothman MR#: [id number] : 1995 Acct:[id number] Age/Sex: 27 / M Date of Service: 04/21/22 Loc: ED Accession Number: [id number] ?? Procedure: CT lumbar spine wo con Ordering Provider: Meghan Cehry D.O. PROCEDURE:? CT LUMBAR SPINE WO CON ? INDICATIONS:? low back pain, hx lami ? TECHNIQUE:? Noncontrast 3 mm thick sections acquired from the T12 level to the sacrum.? Sagittal and coronal reformats were constructed.? For radiation dose reduction, the following was used:? automated exposure control.? ? COMPARISON:? [facility], MR, MR LUMBAR SPINE WO/W CON, 02/04/2022, 7:21. ? FINDINGS:? Image quality:? Excellent.? ? Bones:? There is normal bony alignment.? No acute vertebral body compression fractures.? No suspicious lytic or blastic bony lesions.? No pars defects.? ? T12-L1:? No significant disc bulge. The foramina and central canal are patent. ? L1-L2:? No significant disc bulge. The foramina and central canal are patent. ? L2-L3:? No significant disc bulge. The foramina and central canal are patent. ? L3-L4:? No significant disc bulge. The foramina and central canal are patent. ? L4-L5:? Diffuse disc bulge and disc osteophyte complexes causes mild bilateral foraminal stenosis.? Mild central canal stenosis. ? L5-S1:? In the area of previous disc protrusion in the left lateral recess/left foramina there is high density which causes severe central canal stenosis causing mass effect upon the central canal and severe left foraminal stenosis. ? Soft tissues:? No retroperitoneal masses or hematomas.? Visualized aorta is normal in caliber.? ? ? IMPRESSION:? High density in the left lateral recess/left foramina causing severe central canal stenosis and left foraminal stenosis.? Differential diagnosis includes residual disc and/or hemorrhage.? Recommend MRI with contrast. ? ? Dictated by: Ej Galaviz M.D. on 04/21/2022 at 12:20 ? ? Approved by: Ej Galaviz M.D. on 04/21/2022 at 12:57 ? MRI - Lumbar: Radiologist's Impression: [address] [address] Magnetic Resonance Report Signed Patient: Michael Rothman MR#: [id number] : 1995 Acct:[id number] Age/Sex: 27 / M Date of Service: 04/21/22 Loc: ED Accession Number: [id number] ?? Procedure: MR lumbar spine wo/w con Ordering Provider: Meghan Chery D.O. PROCEDURE:? MR LUMBAR SPINE WO/W CON ? INDICATIONS:? protrusion/Left foraminal. ? TECHNIQUE:? Noncontrast sagittal T1 spin echo and T2 fast spin echo, sagittal STIR, axial T1 and T2 fast spin echo through the lumbar spine.? In cases with scoliosis, additional coronal T2 fast spin echo may be performed.? After the administration of contrast, sagittal and axial T1 spin echo with fat saturation through the lumbar spine.? ? COMPARISON:? [facility], MR, MR LUMBAR SPINE WO/W CON, 02/04/2022, 7:21. ? FINDINGS:? Image quality:? Excellent.? ? Alignment and curvature:? There is normal bony alignment.? ? Marrow:? Marrow is of normal overall signal.? No acute vertebral body compression fractures.? No suspicious marrow enhancement.? ? Spinal cord:? Conus medullaris terminates at the L1 level.? Visualized spinal cord demonstrates normal signal, without suspicious enhancement.? ? Paraspinous soft tissues:? No paravertebral masses or abnormal enhancement.? ? T12-L1:? No significant disc bulge. The foramina and central canal are patent. ? L1-L2:? No significant disc bulge. The foramina and central canal are patent. ? L2-L3:? No significant disc bulge. The foramina and central canal are patent. ? L3-L4:? No significant disc bulge. The foramina and central canal are patent. ? L4-L5:? The disc is desiccated with a diffuse disc bulge causing mild bilateral foraminal stenosis and minimal central canal stenosis. ? L5-S1:? The disc is mildly desiccated with a diffuse disc bulge.? There has been interval laminotomy.? Previously described disc protrusion is again seen but appears larger and has sequestered fragments.? This causes severe left foraminal stenosis and encroaches upon the lateral recess causing moderate central canal stenosis. ? IMPRESSION:? 1. Previously described left paracentral and foraminal disc protrusion is larger and now demonstrates sequestered fragments causing severe left foraminal stenosis and encroaching upon the lateral recess and exiting S1 nerve root. 2. Interval laminotomy since the prior MRI. 3. Degenerative disc disease at L4-5 with mild foraminal stenosis and minimal central canal stenosis.? ? ? Dictated by: Ej Galaviz M.D. on 04/21/2022 at 14:19 ? ? Approved by: Ej Galaviz M.D. on 04/21/2022 at 14:26 ? MDM Narrative Medical decision making narrative: 27-year-old male with previous L1 laminectomy that re-injured his lower back after slipping in the mud earlier today. Patient was given medications in route but in order to stay ahead of the pain and spasms was given Toradol, Valium and Percocet in the ED. Lumbar CT reveals lumbar stenosis and MRI with contrast recommended. MRI reveals disc protrusion is larger and now demonstrates fragments. Consideration included that injury was traumatic, patient is not a IV drug user, no fever, neurovascular intact, no weakness, no signs of epidural abscess or saddle anesthesia. Consultation Dr. Aguila of orthopedics recommended 4 mg of Decadron administration and discharge medications of a Medrol Dosepak, Percocet and Valium to keep him comfortable until they can get him in this week. Discussed plan of care with patient, who is agreeable with course of action. Discharge Plan Departure Patient Disposition: Home Clinical Impression: Acute back pain with radiculopathy, Sciatica Instructions: DI for Lumbar Radiculopathy Activity Restrictions/Additional Instructions: *You have been diagnosed with a re-injury of your lumbar spine. I consulted with Dr. [facility]ila [facility] and she will expedite getting you in to be seen this week. I am prescribing a Medrol Dosepak (steroid medication) pain medication and and a muscle relaxer. Please take the medications as prescribed in addition to hot or cold compresses to the affected site, position of comfort, etc.. If at any point you develop intolerable pain, loss of control of bowel or bladder, etc. please come into the emergency room remi. *What to do: *Please continue to take your regular medications as directed. [x ] New medication prescriptions sent to your pharmacy: [facility] in [place] [ ] New medication written as a paper prescription [ ] No new medications given *Please follow up with your primary care provider in 2-3 days, call for an appointment. Let them know you were seen in the Emergency Department and that we ask that you be seen in follow up. We will electronically transmit a record of today's note if your PCP is in our system *If you do not have a primary care provider please contact the [facility] Resource line at [phone]. They will ask some questions about your medical history and help get you set up with a doctor in the community. ? Return to ER if you should have any new, worsening or concerning symptoms, such as worsening pain, severe headache, confusion, chest pain, difficulty breathing, fever greater than 101 F, shaking chills, persistent vomiting to the point that you cannot drink fluids, or other new or worsening symptoms. Prescriptions: New oxycodone-acetaminophen [Percocet] 5-325 mg tablet 1 tab PO Q4-6H PRN (Reason: pain) Qty: 30 0RF diazepam [Valium] 5 mg tablet 5 mg PO BID PRN (Reason: muscle spasm) Qty: 10 0RF methylprednisolone [Medrol (Eric)] 4 mg tablets,dose pack 4 mg PO DAILY Qty: 21 0RF Rx Instructions: 6 tabs on day 1, 5 tabs on day 2, 4 tabs on day 3, 3 tabs on day 4, 2 tab on day 5, 1 tab on day 6 No Action ibuprofen 400 mg Tablet 400 mg Q6H PRN (Reason: Pain (Scale Score 7-10)) Tylenol 1,000 mg PO Q6H PRN (Reason: Breakthrough Pain, Moderate) oxycodone 5 mg tablet 5 mg PO Q4H PRN (Reason: pain) Qty: 30 0RF oxycodone-acetaminophen 5-325 mg tablet 1 tab PO Q6H PRN (Reason: pain) Qty: 14 0RF dexamethasone [Decadron] 4 mg tablet 10 mg PO DAILY Qty: 5 0RF epinephrine [EpiPen 2-Eric] 0.3 mg/0.3 mL auto-injector 0.3 mg IM ONCE Qty: 2 2RF Rx Instructions: as a single dose; may repeat once prednisone 20 mg tablet 40 mg PO DAILY PRN (Reason: allergic reaction) Qty: 10 1RF Rx Instructions: Take 2 at the onset of an allergic reaction Referrals: Kimberly Aguila MD [Physician] - Visit Report Forms: Patient Portal/API <Meghan Chery DO - Last Filed: 04/22/22 11:50> Cosign ED Attending Edgarature Attestation: I was immediately available in the department for consultation. Documentation has been reviewed. Patient case was reviewed. Initiated with CT as patient had reassuring exam with minor trauma. CT was concerning MRI was ordered and orthopedic consultation obtained. Agree with current plan.
[2022-04-21] MEDS: OXYCODONE/ACETAMINOPHEN 5/325 TABLET 1 TAB PO (12:56)
[2022-04-21] MEDS: diazePAM 5 MG TABLET PO (12:56)
--- NOTE | 2022-04-21 13:56 | DI.MRI.S_ITS ---
PROCEDURE: MR LUMBAR SPINE WO/W CON INDICATIONS: protrusion/Left foraminal. TECHNIQUE: Noncontrast sagittal T1 spin echo and T2 fast spin echo, sagittal STIR, axial T1 and T2 fast spin echo through the lumbar spine. In cases with scoliosis, additional coronal T2 fast spin echo may be performed. After the administration of contrast, sagittal and axial T1 spin echo with fat saturation through the lumbar spine. COMPARISON: [facility], , MR LUMBAR SPINE WO/W CON, 02/04/2022, 7:21. FINDINGS: Image quality: Excellent. Alignment and curvature: There is normal bony alignment. Marrow: Marrow is of normal overall signal. No acute vertebral body compression fractures. No suspicious marrow enhancement. Spinal cord: Conus medullaris terminates at the L1 level. Visualized spinal cord demonstrates normal signal, without suspicious enhancement. Paraspinous soft tissues: No paravertebral masses or abnormal enhancement. T12-L1: No significant disc bulge. The foramina and central canal are patent. L1-L2: No significant disc bulge. The foramina and central canal are patent. L2-L3: No significant disc bulge. The foramina and central canal are patent. L3-L4: No significant disc bulge. The foramina and central canal are patent. L4-L5: The disc is desiccated with a diffuse disc bulge causing mild bilateral foraminal stenosis and minimal central canal stenosis. L5-S1: The disc is mildly desiccated with a diffuse disc bulge. There has been interval laminotomy. Previously described disc protrusion is again seen but appears larger and has sequestered fragments. This causes severe left foraminal stenosis and encroaches upon the lateral recess causing moderate central canal stenosis. IMPRESSION: 1. Previously described left paracentral and foraminal disc protrusion is larger and now demonstrates sequestered fragments causing severe left foraminal stenosis and encroaching upon the lateral recess and exiting S1 nerve root. 2. Interval laminotomy since the prior MRI. 3. Degenerative disc disease at L4-5 with mild foraminal stenosis and minimal central canal stenosis. Dictated by: Ej Galaviz M.D. on 04/21/2022 at 14:19 Approved by: Ej Galaviz M.D. on 04/21/2022 at 14:26
[2022-04-21] MEDS: DEXAMETHASONE 4 MG/ML VIAL IV (16:07)
== END 2022-04-21 16:53 | disposition home or self-care (01) ==
PROVIDERS: Emergency Provider Registered Nurse
DX: M54.16 Radiculopathy, lumbar region (principal); M54.42 Lumbago with sciatica, left side
CPT/HCPCS: 72131; 72158; 96374; 96375; 99284; J1100; J1885

== ENCOUNTER → 2022-05-03 10:02 | Outpatient (CLI) | payer OTHER, SELFPAY ==
[2022-05-03 20:11] LABS: COVID19 - ORCAS (NP or Nasal) Negative (Negative)
== END ==
PROVIDERS: PCP Family Medicine; Visit Provider Family Medicine
DX: Z01.812 Encounter for preprocedural laboratory examination (principal); Z20.822 Contact with and (suspected) exposure to COVID-19
CPT/HCPCS: U0003

== ENCOUNTER 2022-05-06 12:28 | Day surgery (SDC) | payer OTHER, SELFPAY ==
[2022-05-06] VITALS (12 sets, daily range): BP systolic 117–146; BP diastolic 61–94; PULSE 85–112; RESP 11–21; TEMP 36.2–37.2; O2SAT 94–100; BMI 21.4
--- NOTE | 2022-05-06 | DI.RAD.S_ITS ---
PROCEDURE: XR LUMBAR SPINE 2-3V INDICATIONS: L5-S1 TLIF TECHNIQUE: 2 views of the lumbar spine were acquired. COMPARISON: [facility], CR, XR LUMBAR SPINE 2-3V, 02/04/2022, 16:44. FINDINGS: 2 intraoperative C-arm images demonstrate posterior/interbody fusion at the L5-S1 level with expected positioning of posterior fixation hardware and intervertebral disc spacer. IMPRESSION: Expected appearance and alignment status post posterior/interbody fusion L5-S1. Dictated by: Desmond Acevedo Gloria Interpreted: Yogi Beverly MD on 05/06/2022 at 16:32 Transcribed by: BERNARD on 05/06/2022 at 16:33 Approved by: Yogi Beverly M.D. on 05/06/2022 at 16:54
[2022-05-06] MEDS: LACTATED RINGERS 1,000 ML 42 ML IV (13:09)
[2022-05-06] MEDS: ACETAMINOPHEN 325 MG TABLET 975 MG PO (13:12)
--- NOTE | 2022-05-06 13:22 | PM.PREOP ---
Pre-operative Note COVID-19 COVID-19 status: Negative Result date/Date tested (Pos, Neg/Pending): 05/05/22 Criteria for continued procedure: Expected advancement of disease process, Possibility delay results in more complex future surgery or treatment, Increased loss of function, Continuing or worsening of significant or severe pain, Deterioration of the patient's condition or overall health and Delay expected to result in less-positive ultimate med/surg outcome Interval Note History & Physical reviewed/Exam performed by Physician: Yes Changes to H&P: No H&P completed within 30 days and has changed as indicated here:: HISTORY ITEM ONSET Bee sting allergy PMHx and PSHx updated: Cognitive and neurobehavioral dysfunction HISTORY ITEM ONSET No Data for this History Type. RELATIVE PROBLEM ONSET AGE COMMENT Father Hypertension Grandfather Diabetes mellitus Cancer Grandmother Mental health problem SOCIAL HISTORY ITEM COMMENT household members spouse Smoking Status Current some day smoker alcohol intake current
[2022-05-06] MEDS: CEFAZOLIN 2 GM/20 ML SYRINGE IV (14:25)
[2022-05-06] MEDS: BUPIVACAINE 0.5% W/ EPI (PF) 30 ML VIAL INJ (14:34)
--- NOTE | 2022-05-06 14:40 | SUR.OPER ---
Prone on spine table, head in foam head support, padded chest and pelvic supports, gel pad at knees, lower legs supported by pillows; nipples, genitalia and toes free of pressure, arms secured on foam padded arm boards at <90 degrees abduction. Tape over blanket at thigh secured to table. POSITION APPROVED BY SURGEON AND ANESTHESIA
[2022-05-06] MEDS: BUPIVACAINE LIPOSOME 266 MG/20 ML VIAL INJ (16:10)
--- NOTE | 2022-05-06 16:22 | P.OP_ITS ---
Operative Date/Time/Diagnoses Date of procedure: 05/06/22 Time of procedure: 14:00 Pre-op diagnosis: 1. L5-S1 recurrent disc herniation 2. L5-S1 spinal stenosis with radiculopathy Post-op diagnosis: same Procedure & Clinicians Procedure: 1. L5-S1 Postero-lateral and posterior interbody fusion 2. L5-S1 interbody cage placement. 3. L5-S1 decompressive laminectomy with bilateral facetecomies 4. L5-S1 Posterior non-segmental instrumentation 5. Merom of bone marrow from iliac crest 6. Utilization of microsurgical technique and operating microscope Same procedure as scheduled: Yes Indications: Patient has been having chronic back pain and worsening lumbar radiculopathy. Patient has been doing well since our previous L5-S1 microdiskectomy approximately 3 months ago. Patient had a recurrent injury and recurrent severe left leg radiculopathy with progressive neurologic deficit over the last 3 weeks. Patient failed multiple conservative management with worsening pain weakness and numbness in his lower extremity. Patient has been having difficulty performing activity of daily living. After discussing risks benefits of treatment options, patient elected proceed with surgery. Surgeon: Karin Mercado Classification Case Manager: Yvonne Hines Click Yes if Unassisted: No Anesthesia Type: General Operative Notes Closure Type: primary Prosthetic devices, grafts, tissues, transplants, or devices: Globus revolve screws, Rise cage Estimated Blood Loss (mL): 50 Blood products transfused: none Procedure in detail: Patient was seen in the preoperative area. Risks and benefits of the surgery was discussed with the patient. Informed consent was obtained from the patient and placed in the chart. Surgical site was marked. Patient was taken to the operative room. General anesthesia was administered. Prophylactic antibiotic was given to the patient less than 30 min before the incision was made. Patient was placed into a prone position on the Juve table. Patient's back was then prepped and draped in the sterile fashion. Time-out was performed at this time. Using AP and lateral C-arm imaging the interval between L5-S1 was identified and marked on patient's back. A 2 inch incision 2 in from midline was made on the left side first. The fascia was incised in line with skin incision. Globus MARS retractors was placed inside the incision and docked onto the L5 lamina. Using microsurgical technique and operating microscope, a L5 laminectomy and L5-S1 facetectomy was performed using a Kerrison rongeur. Patient was found have severe neural foraminal stenosis and required a total facetectomy for decompression which rendered L5-S1 grossly unstable and required a fusion procedure at the same time. Patient was found to have significant amount of epidural scarring from prior microdiskectomy. Care was taken to protect the dura and nerve while performing the diskectomy and facetectomy. The disc space at L5-S1 was identified. And a total diskectomy was performed at L5-S1 level. The endplates were decorticated using a rasp and shaver. The total diskectomy and decortication was performed at L5-S1 level in order to to accomplish a L5-S1 fusion. The local bone from the laminectomy and facetectomy was saved for local bone grafting. After the total diskectomy and decortication was completed, Trifecta bone graft material was combined with local bone that was harvested earlier. At this time, a separate skin is incision was made over the iliac crest. A Jamshidi needle was inserted into the iliac crest through a separate skin incision. 5 cc of bone marrow aspiration was obtained through the separate skin incision using a Jamshidi needle from the iliac crest. The bone marrow aspiration was combined with local bone and the Trifecta bone grafting material. The bone grafting material was placed into the L5-S1 interbody space along with a expandable cage. The cage was expanded to its maximum height using the torque limiting screwdriver. At this time a mirror image incision was made on the right side. The fascia was incised in line with the skin incision. Globus MARS retractor was inserted and docked onto the L5-S1 posterolateral gutter. Using the power drill, posterior- lateral decortication was performed at L5-S1 level until bleeding cortical bone was identified. The remaining bone grafting material was placed into the L5-S1 posterior lateral gutter he order to accomplish posterolateral fusion at the L5- S1 level. Using the double C-arm technique, pedicle screws were placed into the L5-S1 pedicles bilaterally. This was done by placing the Jamshidi needle into the pedicles, then placing the guidewires over the Jamshidi needle, and finally placing the cannulated screws over the guidewires bilaterally. After the pedicle screws were placed, 2 titanium rods was locked into the heads of the pedicle screws using locking caps and torque limiting screwdriver. After all the hardware was placed, and confirmed with AP and lateral C-arm imaging, the wound was then irrigated with sterile normal saline and packed with Ray-Sondra gauze for 3 min to accomplish hemostasis. After the gauze was removed the deep fascia was closed with #1 Vicryl suture. The subcutaneous layer was closed with 2-0 Vicryl. The skin was closed with skin pedro. Patient tolerated the procedure well. There were no complications. Complications: none Post-operative Condition: stable Disposition: PACU Plan for aftercare: Admit to inpatient hospital
[2022-05-06] MEDS: MEPERIDINE 50 MG/ML INJ 12.5 MG IV ×2 (16:42→16:54)
[2022-05-06] MEDS: HYDROMORPHONE 2 MG INJ IV (16:46)
[2022-05-06] MEDS: OXYCODONE IR 5 MG TABLET PO (17:01)
[2022-05-06] MEDS: SODIUM CHLORIDE 0.9% 1,000 ML 100 ML IV (17:58)
--- NOTE | 2022-05-06 18:42 | PC.NURSE ---
Pt arrived to the unit around 1730 from OR. Pt is AxOx4, calm and cooperative. VSS, pt denies pain and showed good sensation on BLE. Drsg on his back C/D/I. Pt has no other skin issues except incision his back. Pt is eating well. Pt has IV fluid running 100 ml/hr. No other changes. Continue monitor.
[2022-05-06] MEDS: SENNOSIDES 8.6 MG TABLET 17.2 MG PO (20:34)
[2022-05-06] MEDS: OXYCODONE IR 5 MG TABLET 10 MG PO ×2 (20:34→23:36)
[2022-05-06] MEDS: DOCUSATE 100 MG CAPSULE PO (20:35)
[2022-05-06] MEDS: hydrOXYzine pamoate 25 MG CAPSULE PO (20:35)
[2022-05-06] MEDS: CEFAZOLIN 1 GM VIAL IV (23:03)
[2022-05-07 00:56] VITALS: BP 124/69; PULSE 91; RESP 15; TEMP 37; O2SAT 96
[2022-05-07] MEDS: hydrOXYzine pamoate 25 MG CAPSULE PO ×2 (03:29→08:10)
[2022-05-07] MEDS: OXYCODONE IR 5 MG TABLET 10 MG PO ×2 (03:29→08:10)
[2022-05-07] MEDS: SODIUM CHLORIDE 0.9% 1,000 ML 100 ML IV (04:20)
[2022-05-07 04:57] VITALS: BP 118/65; PULSE 81; RESP 16; TEMP 36.1; O2SAT 98
[2022-05-07] MEDS: CEFAZOLIN 1 GM VIAL IV (06:17)
[2022-05-07 07:45] VITALS: BP 127/77; PULSE 84; RESP 21; TEMP 36.9; O2SAT 99
--- NOTE | 2022-05-07 07:47 | PM.DS.1 ---
History of Present Illness History of Present Illness Date Patient Seen: 05/07/22 Time Patient Seen: 07:48 Chief complaint: back pain Narrative: pain is 6/10. Denies fever or chills. No nausea or vomiting. Patient has set up to bedside but has not gotten up to ambulate in the room. Patient has assistance at home. Discharge Providers Provider Discharge Date: 05/07/22 Primary care physician: Julian Sy MD Consults: 05/06/22 17:31 Consult to Occupational Therapy Evaluate & Treat Comment: Physician Instructions: Evaluate and treat Consult to Physical Therapy Evaluate & Treat Comment: Physician Instructions: Evaluate and Treat Discharge provider: Nicko Allred PA-C Exam Vital Signs (past 8 hours): - 05/07/22 00:56 05/07/22 04:57 Temperature 98.6 F 97.0 F L Pulse Rate 91 H 81 Respiratory Rate 15 16 Blood Pressure 124/69 118/65 Pulse Oximetry 96 98 Oxygen Flow Rate 0 Oxygen Delivery Method Room Air Oxygen Flow Rate 0 Narrative Exam Narrative: 27-year-old male resting comfortably in bed in no apparent distress. Motor functions intact bilateral lower extremities. Sensation grossly intact to light touch bilateral lower extremities. 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 Limit bending, twisting, lifting multimodal pain management disposition, home today after physical therapy if safe for home environment. Discharge Plan Discharge Plan Patient Disposition: Home Discharge orders & Medications Discharge Orders: Discharge (Order); Ordered 05/07/22 Ordered By: Nicko Allred Prescriptions: New acetaminophen 325 mg Tablet 650 mg PO Q6HR PRN (Reason: Pain, Mild (1-3)) Qty: 60 0RF docusate sodium 100 mg Capsule 100 mg PO BID Qty: 20 0RF oxycodone 5 mg Tablet 10 mg PO Q3HR PRN (Reason: Pain, Severe (7-10)) Qty: 60 0RF Continued Tylenol 1,000 mg PO Q6H PRN (Reason: Breakthrough Pain, Moderate) epinephrine [EpiPen 2-Eric] 0.3 mg/0.3 mL auto-injector 0.3 mg IM ONCE Qty: 2 2RF Label Comments: a year ago Rx Instructions: as a single dose; may repeat once Discontinued ibuprofen 400 mg Tablet 400 mg Q6H PRN (Reason: Pain (Scale Score 7-10)) oxycodone 5 mg tablet 5 mg PO Q4H PRN (Reason: pain) Qty: 30 0RF oxycodone-acetaminophen 5-325 mg tablet 1 tab PO Q6H PRN (Reason: pain) Qty: 14 0RF Follow up/Referrals: Karin Mercado MD [Physician] - ( 2 weeks) Julian Sy MD [Primary Care Provider] - Diet/Activity/Treatments Diet: Diet as Tolerated Activity: limit bending, twisting, lifting Skin/Wound/Dressing Care Report to your healthcare provider any signs of infection, such as:: chills, fever, increased pain, unusual drainage and unusual redness Dressing: keep dressing clean and dry Visit Report/Discharge Packet Instructions: DI for Constipation, How to Prevent Falls, DI for Taking Pain Medication, DI for Transforaminal Lumbar Interbody Fusion Stand Alone Forms: Surgery Discharge Discharge Data Primary Care Provider: Julian Sy Attending Provider: Karin Mercado Quality VTE Deep Vein Thrombosis/Pulmonary Embolism Present on Admission: No
[2022-05-07] MEDS: ACETAMINOPHEN 325 MG TABLET 650 MG PO (08:10)
[2022-05-07] MEDS: DOCUSATE 100 MG CAPSULE PO (08:10)
--- NOTE | 2022-05-07 10:05 | OT.IP.EVAL ---
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 Activities of Daily Living and IADL's Independent with all ADl and IADl needs. Social History Household Members spouse Living Arrangements House Number of Floors (Floors) Two Floors Number of Stairs To Enter/Railing? 3-4 steps with no rails and 6 steps, landing, and another 6 steps to the bedroom level- left rail going up the the bedroom. Home Environment High Toilet,Walk in Shower Additional Social History Comment Pt's mother lives 5 minutes away and able to assist as needed. M2 OT-IP Current Condition Start: 05/07/22 11:38 Freq: Status: Active Protocol: Document 05/07/22 11:39 [facility] (Rec: 05/07/22 11:54 [facility] [id number]) Occupational Therapy Current Condition Current Condition Evaluation Date 05/07/22 Treatment Diagnosis S/p L5-S1 TLIF Diagnosis Onset Date 05/06/22 M3 OT- IP Subjective and Pain Start: 05/07/22 11:38 Freq: Status: Active Protocol: Document 05/07/22 11:39 [facility] (Rec: 05/07/22 11:54 [facility] [id number]) OT- Subjective Occupational Therapy Visit Type Type Initial Evaluation Visit Start Time 09:30 Visit Stop Time 10:05 Total Visit Minutes 35 Occupational Therapy Visit Comments Patient Comments Pt agreed to get up and pt's mom in the room for the beginning of OT eval. Patient/Caregiver Goals TO go home. OT Pain Assessment Pain When Pain Assessed At Rest Pain Present Pain Present Pain Reported Location Left Lower Posterior Back Intensity 5 Scale Used Numeric (0 - 10) M4 OT- IP ADL's Start: 05/07/22 11:38 Freq: Status: Active Protocol: Document 05/07/22 11:39 [facility] (Rec: 05/07/22 11:54 [facility] [id number]) OT [id number]-[id number] General Evaluation Self-Feeding Ability Independent OT ADL-Oral Care Comments Oral Care Comments Educated best to spit in to a cup or hinge at his hips when doing oral care needs. OT ADL-Dressing General Eval Lower Body Dressing Ability Maximum Assistance Comments OT Dressing Comments Pt not able to comfortably cross his legs to LB dressing needs and suggested pt get LB dressing equipment and able to practice. Pt insistent that his will just be able to assist pt for his needs. OT ADL-Toileting General Evaluation Toileting Ability Standby Assistance Comments OT Toileting Comments Pt able to comfortable lean to the side to wipe. Suggested use of wet ones to assist and use of urinal at night if needed as pt's bathroom is located downstairs. Also mentioned getting a BSC if needed . OT ADL-Bathing Comments OT Bathing Comments Pt wanting to shower at home. Suggested pt get a shower chair and HHSP. M5 OT- IP IADL's Start: 05/07/22 11:38 Freq: Status: Active Protocol: Document 05/07/22 11:39 [facility] (Rec: 05/07/22 11:54 [facility] [id number]) OT-Instrumental Activities of Daily Living Home Safety Awareness Awareness of Need for Assistance at Home Good Awareness Ability to Problem Solve Emergency Able to Problem Solve Situations Home Safety Comments Pt's to be home to assist pt for his needed. Meal Preparation Meal Preparation Caregiver Provides Assist Bus Repair Supervisor Bus Repair Supervisor Caregiver Provides Assist M6 OT- IP Functional Cognition Start: 05/07/22 11:38 Freq: Status: Active Protocol: Document 05/07/22 11:39 [facility] (Rec: 05/07/22 11:54 [facility] [id number]) Cognitive Factors Limiting Selfcare Function Cognitive Ability Level of Alertness Alert Patient Orientation Name,Age,Birthday,Month,Date, Year,Day of Week,Place, Situation Attention Span Ability Capable of Focused Attention, Capable of Sustained Attention Ability to Follow Commands Able to Follow Multi-Step Commands Cognitive Comments Cognitive Assessment Comments Pt able to follow commands after initial education of back precautions for his ADL and mobility needs with good safety. OT- Vision and Hearing OT- Hearing Assessment OT- Hearing Assessment WFL OT- Vision Assessment Visual Acuity WFL M7 OT- IP Mobility and Balance Start: 05/07/22 11:38 Freq: Status: Active Protocol: Document 05/07/22 11:39 [facility] (Rec: 05/07/22 11:54 [facility] [id number]) OT- Bed Mobility Assessment Rolling Type of Rolling Roll to Left Level of Assistance Standby Assistance Supine to Sit Supine to Sit Assist Standby Assistance Sit to Supine Sit to Supine Assist Standby Assistance OT-Transfer Assessment Sit to and From Stand Sit to and from Stand Standby Assistance,Contact Guard Assistance Transfers Transfer Ability Standby Assistance Technique Transfer Destination Bed,Chair,Toilet Transfer Technique Stand Step Pivot Devices Transfer Assistive Devices Gait Belt,Front Wheeled Walker Comments Mobility Comments Pt initially having difficulty of transition coming to stand and then after practice able to do with increased safety and independence. At times pt needing CGA for safety especially from lower surfaces . Initially a little unsteadiness for LLE. OT- Balance Assessment Sitting Balance and Reactions Static Sitting Balance Ability Normal Dynamic Sitting Balance Ability Good Standing Balance and Reactions Static Standing Balance Ability Fair Dynamic Standing Balance Ability Fair M8 OT- IP Objective Assessments Start: 05/07/22 11:38 Freq: Status: Active Protocol: Document 05/07/22 11:39 [facility] (Rec: 05/07/22 11:54 [facility] [id number]) OT-Muscle Tone Assessment Muscle Tone WNL Yes M9 OT- IP Assessment and Plan Start: 05/07/22 11:38 Freq: Status: Active Protocol: Document 05/07/22 11:39 [facility] (Rec: 05/07/22 11:54 [facility] [id number]) OT Summary Assessment and Plan Potential Rehabilitation Potential Excellent Analytic Complexity at Evaluation Low Summary OT Impairments Pain,Functional Mobility, Grooming,Dressing,Toileting, Bathing,Toilet Transfers, Shower Transfers Progress Towards Goals Progressing Toward Goals Assessment Summary Pt low complexity and dong well to follow his back precautions after initial educations for ADl and mobility needs. Pt has supportive family to be able to assist pt at home. Pt would benefit from LB dressing equipment- however pt insists that his will just assist him, FWW, shower chair, BSC/ urinal and HHSP. Pt's bedroom is upstairs and toilet located downstairs. Pt to go home when his when medically stable. Goals Grooming Goal Independent Dressing Goal Minimal Assistance Toileting Goal Independent Bathing Goal Minimal Assistance Toilet Transfer Goal Independent Shower Transfer Goal Independent Days to Meet Goals 2 Frequency of Treatment Frequency Of Treatment Once a Day Treatment Plan OT Treatment Plan ADL Training,Functional Mobility,Patient/Family Education,Discharge Planning Discharge Recommendations OT Discharge Recommendations Home with Assistance Home Equipment Needs FWW, BSC/urinal, shower chair, HHSP, LB dressing equipment Transportation Needs at Discharge Private Vehicle
--- NOTE | 2022-05-07 10:10 | PC.NURSE ---
Pt has been cleared by OT and is waiting to work with PT. When cleared by PT he will be going home. His Mother is present to accompany him and drive. His IV has been removed and his dsg to his back has been changed. Back incision areas look good-no redness or drainage.
--- NOTE | 2022-05-07 10:36 | PT.IIE ---
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 M2 PT-IP Current Condition Start: 05/07/22 12:35 Freq: NEEDED Status: Active Protocol: Document 05/07/22 10:36 AB (Rec: 05/07/22 12:44 AB [email or web address]) Physical Therapy Current Condition Current Condition Evaluation Date 05/07/22 Treatment Diagnosis s/p L5S1 TLIF; difficulty in walking Onset Date 05/06/22 M3 PT-IP Subjective Start: 05/07/22 12:35 Freq: NEEDED Status: Active Protocol: Document 05/07/22 10:36 AB (Rec: 05/07/22 12:44 AB [email or web address]) Subjective Physical Therapy Visit Type Type Initial Evaluation Visit Start Time 10:36 Visit Stop Time 11:00 Total Visit Minutes 24 Number of BOAT FUELER Visits 0 Physical Therapy Visit Comments Patient Comments agreeable to do PT M4 PT-IP Mobility and Gait Start: 05/07/22 12:35 Freq: NEEDED Status: Active Protocol: Document 05/07/22 10:36 AB (Rec: 05/07/22 12:44 AB [email or web address]) PT-Bed Mobility Assessment Rolling Level of Assist Independent Supine to Sit Supine to Sit Independent Sit to Supine Sit to Supine Independent PT-Transfer Assessment Sit to and From Stand Sit to and from Stand Standby Assistance Equipment Transfer Assistive Device Gait Belt,Front Wheeled Walker Orthotic/Prosthetic Devices or Brace: No Transfers Transfer Destination Bed Transfer Technique Stand Step Pivot Transfer Ability Level of Assist Standby Assistance Comments Mobility Comments reviewed back precautions and pt able to recall. completed sit to stand from chair SBA and step transfer to bed using FWW SBa. completed log roll sit<>supine mod I. completed sit to stand from EOB SBA and ambulated in the hallway using FWW SBA ~ 150 ft. completed up/down step without AD and completed SBA to CGA. completed steps again using SPC SBA and is steadier with use of SPC. pt stated that he can get a cane. ambulated back to his room using FWW SBA and sat back on chair. call ight and table placed within reach. Gait Assessment Gait Gait Assistance Required: Standby Assistance Distance (Feet) 150 Able to Maintain Weight Bearing Status Yes During Gait Assistive Devices Assistive Device Gait Belt,Front Wheeled Walker Orthotic/Prosthetic Devices or Brace: No Factors Limiting Gait Function Factors Limiting Gait Function Decreased Strength,Limited Range of Motion,Pain Stair Climbing Assessment Evaluation Level of Assist On Stairs Standby Assistance,Contact Guard Assistance Devices Stair Climbing Assistive Devices None,Straight Cane Technique/Endurance Stair Climbing Direction Ascend and Descend Stair Climbing Technique Step to Step Number of Steps Climbed 3 Query Text: Stair Climbing Set # Repetitions (reps) 2 PT-Balance Assessment Sitting Balance and Reactions Static Sitting Balance Ability Normal Dynamic Sitting Balance Ability Normal Standing Balance and Reactions Static Standing Balance Ability Good Dynamic Standing Balance Ability Fair Device Used FWW M5 PT-IP Objective Assessments Start: 05/07/22 12:35 Freq: NEEDED Status: Active Protocol: Document 05/07/22 10:36 AB (Rec: 05/07/22 12:44 [email or web address]) Orientation Orientation/Cognition Level of Alertness Alert Orientation Name,Age,Birthday,Month,Date, Year,Day of Week,Place, Situation Language Function Ability No Deficits Noted Safety Awareness Understands Safety Issues Memory Description No Deficits Noted Gross Range of Motion Lower Extremity ROM Assessment Within Functional Limits Strength Lower Extremity Strength Assessment Left Impaired Hip 4-/5 Knee 4-/5 Coordination Assessment Gross Coordination Gross Coordination WNL Sensation Assessment Sensation Gross Sensation WNL Muscle Tone Muscle Tone WNL Yes M6 PT-IP Treatment Start: 05/07/22 12:35 Freq: NEEDED Status: Active Protocol: Document 05/07/22 10:36 AB (Rec: 05/07/22 12:44 AB [email or web address]) Physical Therapy Treatment Education Education Provided Precautions,Weight Bearing Status,Safety M7 PT-IP Assessment and Plan Start: 05/07/22 12:35 Freq: NEEDED Status: Active Protocol: Document 05/07/22 10:36 AB (Rec: 05/07/22 12:44 AB [email or web address]) PT Summary Assessment and Plan Potential Rehabilitation Potential Good Status of Condition at Evaluation Stable Summary Impairments Pain,ROM,Strength,Balance, Coordination,Sensation,Tone, Cognition,Bed Mobility, Transfers,Gait,Activity Tolerance Assessment Summary pt requiring SBA with mobility using FWW and will have his spouse and family to assist him as needed. pt may go home when medically stable. Goals Transfer Goal Independent,Front Wheeled Walker Gait Goal Independent,Front Wheel Walker Gait Distance 300 Other Goals improve transfers and ambulation without AD 250 ft SBA up/down 3 steps without rails SBA up/down 12 steps using L rail mod I Days to Meet Goals 3 Frequency of Treatment Frequency Of Treatment Twice a Day Treatment Plan Physical Therapy Treatment Plan Bed Mobility Training,Transfer Training,Gait Training, Therapeutic Exercise,Balance Retraining,Post Op Education, Discharge Planning,Hot or Cold Pack,Neuromuscular Re-ed, Coordination Retraining,Manual Therapy Precautions Lumbar Precautions Log Roll,No Twisting,Limit Bending,Lifting Restriction of 10 lbs,Gait Belt above Incisional Area Recommendations To Nursing Amount of Assist Needed Standby Assistance Discharge Recommendations PT Discharge Recommendations Home with Assistance, Outpatient PT Transportation Needs at Discharge Private Vehicle
--- NOTE | 2022-05-07 11:34 | CM.DANOTE ---
Initial Discharge Planning Note: Case received. EMR reviewed. Met with patient in his room. Payer: [facility] and self pay PCP: Dr Julian Sy 27 year old male underwent Lumbar lami and fusion 05/06/22, by Dr Mercado, he is POD#1 today. He is sitting up in chair and awaiting PT to work with him. OT already there. He states his pain is improved since surgery. He lives with his spouse on [facility] and his parents live 5 minutes away and are helpful. His mother is procuring a better FWW [facility] the [facility]. Plan: If PT clears, he will discharge back to [place] today with his mother. Caitlin Mcintosh RN/DCP Discharge Planning/Care Management CM Discharge Assessment Start: 05/07/22 11:32 Freq: Status: Active Protocol: Document 05/07/22 11:32 (Rec: 05/07/22 11:34 [id number]) Discharge Planning Assessment Assigned Head Usher Caitlin Mcintosh RN/DCP Advance Directives? No History Provided By Patient Prior Living Arrangements House Household Members spouse Comment works Type of transporation used prior to Drives own vehicle admit Independent with ADL's Yes Is patient alert and oriented? Yes DME Already Rented / Owned FWW / Walker Discharge Plan Home Transportation Arrangement Mother will provide transport back to [facility]. Referrals Initiated None needed Review Status In Process Next Review Type Continued Stay Review
--- NOTE | 2022-05-07 14:10 | PC.NURSE ---
Discharge: Pt feels ready to d/c to home. Tolerates diet w/out problems. Vds w/out diff. Po pain meds are effective for pain. Large bulky dressing changed to cover site. PA here and gave d/c instructions. PT/OT in to see pt and gave instructions. Pt understands his lami precautions. Reviewed discharge packet. Mother has already picked up Rx. Given priority load pass. Questions answered. Pt d/c to home via auto with mother.
== END 2022-05-07 11:20 | disposition home or self-care (01) ==
LOC: OR 12:30 → AC 12:31
PROVIDERS: PCP Family Medicine; Referring Provider Orthopaedic Surgery Orthopaedic Surgery of the Spine; Visit Provider Orthopaedic Surgery Orthopaedic Surgery of the Spine
PROC: (CPT 22633; principal; 2022-05-06 14:15)
DX: M51.26 Other intervertebral disc displacement, lumbar region (principal); Z98.890 Other specified postprocedural states; M48.061 Spinal stenosis, lumbar region without neurogenic claudication; M54.16 Radiculopathy, lumbar region
CPT/HCPCS: 22633; 63052; 22853; 22840; 20939; 72100; 76000; 82962; 97161; 97165; 97535; C1713; C1831; C9290; J0690; J1100; J1170; J2175; J2250; J2405; J2704

== ENCOUNTER → 2025-05-12 08:26 | Outpatient (CLI) | payer OTHER, SELFPAY ==
[2022-05-06 12:32] VITALS: BMI 21.4
== END ==
LOC: PHYS 08:27
PROVIDERS: Family Provider Family Medicine; PCP Family Medicine; Referring Provider Orthopaedic Surgery Orthopaedic Surgery of the Spine; Visit Provider Orthopaedic Surgery Orthopaedic Surgery of the Spine
DX: Z98.1 Arthrodesis status (principal); M54.16 Radiculopathy, lumbar region; R29.898 Other symptoms and signs involving the musculoskeletal system
CPT/HCPCS: 95886; 95909